=== PATIENT | male | born 1970 | race Caucasian/White ===

== ENCOUNTER 2019-09-02 06:25 | Observation (INO) | payer OTHER ==
[~2019-09-02] VITALS: Ht 185.4 cm; Wt 76.1 kg
[2019-09-02] MEDS: SODIUM CHLORIDE 0.9% 1,000 ML IV ONE ×2 (06:36→06:53)
[2019-09-02] MEDS: ONDANSETRON 2MG/ML, 2ML IVPush ONE ×2 (06:52→06:53)
[2019-09-02] MEDS ORDERED: ONDANSETRON 2MG/ML, 2ML ONE ×2 (06:52→12:10)
[2019-09-02 07:00] LABS: BASOPHILS # (AUTO) 0.04 x10^3/uL (0-0.1); BASOPHILS % (AUTO) 0 % (0-1); EOSINOPHILS # (AUTO) 0.25 x10^3/uL (0-0.4); EOSINOPHILS % (AUTO) 2 % (1-7); LYMPHOCYTES # (AUTO) 2.63 x10^3/uL (1-3.4); LYMPHOCYTES % (AUTO) 17 % (22-44); MD NO; MEAN CORPUSCULAR HEMOGLOBIN 30.7 pg (27.5-34.5); MEAN CORPUSCULAR HGB CONC 32.8 g/dL (33.2-36.2); MEAN CORPUSCULAR VOLUME 93.6 fL (81-97); MEAN PLATELET VOLUME 8.3 fL (7.4-10.4); MONOCYTES # (AUTO) 0.45 x10^3/uL (0.2-0.8); MONOCYTES % (AUTO) 3 % (2-9); NEUTROPHILS # (AUTO) 11.83 x10^3/uL (1.8-6.8); NEUTROPHILS % (AUTO) 78 % (42-75); PLATELET COUNT 246 x10^3/uL (130-400); RED BLOOD COUNT 5.37 x10^6/uL (4.38-5.82); RED CELL DISTRIBUTION WIDTH 12.5 % (9.4-14.8)
[2019-09-02] MEDS ORDERED: SODIUM CHLORIDE FLUSH 10ML SYR IVF ONE (07:00)
[2019-09-02 07:11] LABS: ALANINE AMINOTRANSFERASE 29 U/L (12-78); ANION GAP 5 mmol/L (5-15); CALCIUM 9.3 mg/dL (8.5-10.1); CHLORIDE 108 mmol/L (98-107); CREATININE 1.18 mg/dL (0.7-1.3)
[2019-09-02 07:14] LABS: ALKALINE PHOSPHATASE 96 U/L (45-117); TOTAL PROTEIN 8.4 g/dL (6.4-8.2)
[2019-09-02] MEDS ORDERED: OMNIPAQUE 350 MG/ML, 100ML BOTTLE ONE (07:45)
[2019-09-02] MEDS ORDERED: CEFOTETAN PMX 1GM/50ML 50 ML ONE (08:10)
[2019-09-02] MEDS ORDERED: SODIUM CHLORIDE 0.9% 1,000 ML IV ONE (08:22)
[2019-09-02] MEDS ORDERED: CEFTRIAXONE PMX 1GM/50ML 50 ML ONE (08:24)
[2019-09-02] MEDS ORDERED: MORPHINE SULFATE 4 MG/ML, 1ML IVPush ONE (08:30)
[2019-09-02] MEDS ORDERED: CEFOTETAN PMX 1GM/50ML 50 ML IV ONE (08:30)
[2019-09-02] MEDS ORDERED: CEFTRIAXONE PMX 1GM/50ML 50 ML IV ONE (08:30)
[2019-09-02] MEDS ORDERED: METRONIDAZOLE PMX 500MG/100ML 100 ML IV ONE (08:30)
--- NOTE | 2019-09-02 08:51 | NUR ---
PT MEDICATED PER APR. PER OK TO ADMIN ABX, NO BC NEEDED.
[2019-09-02] MEDS ORDERED: MORPHINE SULFATE 4 MG/ML, 1ML ONE (09:06)
[2019-09-02] MEDS ORDERED: METRONIDAZOLE PMX 500MG/100ML 100 ML ONE (09:20)
--- NOTE | 2019-09-02 09:30 | NUR ---
REPORT TO RECIEVING RN
[2019-09-02] MEDS ORDERED: BUPIVACAINE/EPI 0.5% 1:200K ONE (10:06)
[2019-09-02 10:44] VITALS: BP 127/76
[2019-09-02] MEDS ORDERED: CHLORHEXIDINE 15 ML UDC MM STA (11:31)
[2019-09-02] MEDS ORDERED: CHLORHEXIDINE 15 ML UDC ONE (11:34)
[2019-09-02] MEDS ORDERED: PROPOFOL 10 MG/ML, 20ML ONE (12:10)
[2019-09-02] MEDS ORDERED: SUCCINYLCHOLINE 20 MG/ML, 10ML ONE (12:10)
[2019-09-02] MEDS ORDERED: SUGAMMADEX 200 MG/2 ML IVPush ONE (12:10)
[2019-09-02] MEDS ORDERED: DEXAMETHASONE 4 MG/ML, 1ML ONE (12:10)
[2019-09-02] MEDS ORDERED: CEFAZOLIN 1,000 MG ONE (12:10)
[2019-09-02] MEDS ORDERED: MIDAZOLAM 1 MG/ML, 2ML ONE (12:11)
[2019-09-02] MEDS ORDERED: FENTANYL PF 100 MCG/2ML ONE (12:19)
[2019-09-02] MEDS ORDERED: FENTANYL PF 100 MCG/2ML IV PRN (13:00)
[2019-09-02] MEDS ORDERED: MEPERIDINE/PF 25MG/0.5ML IVPush PRN (13:00)
[2019-09-02] MEDS ORDERED: DIAZEPAM 5 MG/ML, 2ML IV PRN ×2 (13:00)
[2019-09-02] MEDS ORDERED: hydrALAzine 20 MG/ML, 1ML IV PRN (13:00)
[2019-09-02] MEDS ORDERED: METOCLOPRAMIDE 5 MG/ML, 2ML IV PRN (13:00)
[2019-09-02] MEDS ORDERED: HYDROmorphone 1 MG/ML, 1ML INJ IV PRN (13:00)
[2019-09-02] MEDS ORDERED: ALBUTEROL SULFATE 2.5 MG/3 ML NPPB PRN (13:00)
[2019-09-02] MEDS ORDERED: KETOROLAC 30 MG/1 ML IV PRN (13:00)
[2019-09-02] MEDS ORDERED: ONDANSETRON 2MG/ML, 2ML IVPush PRN (13:00)
[2019-09-02] MEDS ORDERED: PROMETHAZINE 25 MG/ML, 1ML IV PRN (13:00)
[2019-09-02] MEDS ORDERED: LABETALOL 5MG/ML, 20ML IV PRN (13:00)
[2019-09-02] MEDS ORDERED: OXYcodone 5 MG/5 ML ORAL.SOL UDC PO PRN (13:00)
[2019-09-02] MEDS ORDERED: KETOROLAC 30 MG/1 ML ONE (13:13)
[2019-09-02] MEDS ORDERED: MEPERIDINE/PF 25MG/ML,1ML ONE (13:13)
[2019-09-02] MEDS ORDERED: OXYcodone 5 MG/5 ML ORAL.SOL UDC ONE (13:14)
== END 2019-09-03 14:10 | disposition home or self-care (01) ==
LOC: ED 07:09 → EDIP 08:04 → INTOOBSV 08:04 → 4NE 11:05
PROVIDERS: ADMIT Surgery; ATTEND Surgery
DX: Z03.818 Encounter for observation for suspected exposure to other biological agents ruled out (principal); K35.80 Unspecified acute appendicitis
CPT/HCPCS: 36415; 44970; 74177; 80053; 83690; 85025; 87635; 88304; 96365; 96367; 96375; 99285; G0378; J0330; J0690; J0696; J1100; J1885; J2175; J2250; J2270; J2405; J2704; J3010; J7030; Q9967